=== PATIENT | male | born 1955 | race Caucasian/White ===

== ENCOUNTER 2019-06-04 07:01 | Inpatient (IN) ==
[2019-05-24 15:41] LABS: Basophils # 0.1 10*3/uL (0.0-0.2); Basophils % 0.6 % (0.0-0.8); Eosinophils # 0.2 10*3/uL (0.0-0.87); Eosinophils % 1.6 % (0.00-10.9); Hematocrit 46.6 VOL% (42.0-52.0); Hemoglobin 16.1 GM/DL (14.0-18.0); Immature Granulocytes % 0.5 %; Immature Granulocytes Absolute 0.07 #; Lymphocytes # 3.4 10*3/uL (1.4-4.0); Lymphocytes % 24.3 % (21.2-54.2); Mean Corpuscular HGB Conc 34.5 GM/DL (32-36); Mean Corpuscular Volume 91.4 FL (87-102); Mean Platelet Volume 10.7 FL (9.6-12.0); Monocytes % 7.9 % (1.7-12.7); Neutrophils % 65.1 % (38.7-73.9); Platelet Count 294 T/CUMM (130-400); White Blood Count 14.1 T/CUMM (4-12)
[2019-05-24 16:00] LABS: Albumin 4.1 G/DL (3.4-5.0); Bilirubin,Total 0.6 MG/DL (0.2-1.0); Calcium 9.7 MG/DL (8.5-10.1); Osmolality,Calculated 285.1 MOS/KG (273-304); Total Protein 7.8 G/DL (6.4-8.3)
[~2019-06-04 07:01] MED LIST: DIAZEPAM 5 MG TABLET PO ONE; FAMOTIDINE 20 MG TABLET PO ONE; LACTATED RINGERS 1,000 ML IV SCH; ceFAZolin 1,000 MG in SYRINGE 1 EACH IV ONE
[2019-06-04] MEDS ORDERED: DIAZEPAM 5 MG TABLET ONE (07:22)
[2019-06-04] MEDS ORDERED: FAMOTIDINE 20 MG TABLET ONE (07:22)
[2019-06-04] MEDS ORDERED: LIDOCAINE 1% 5 ML VIAL ONE (07:47)
[2019-06-04] MEDS ORDERED: HEPARIN/NACL 0.9% 2 UNITS/ML 500 ML IV ONE (07:47)
[2019-06-04] MEDS ORDERED: ROPIVACAINE 0.5% 30 ML VIAL ONE (07:47)
[2019-06-04] MEDS ORDERED: DEXAMETHASONE 4 MG/1 ML VIAL ONE ×2 (07:48→12:59)
[2019-06-04] MEDS ORDERED: ceFAZolin 1,000 MG VIAL ONE (07:59)
[2019-06-04] MEDS ORDERED: HEPARIN 5,000 UNIT/1 ML VIAL ONE (09:47)
[2019-06-04] MEDS ORDERED: TISSUE ADHESIVE 1 EACH APPLICATOR TOP ONE (09:47)
[2019-06-04] MEDS ORDERED: LIDOCAINE 1% 20 ML VIAL ONE (09:47)
[2019-06-04] MEDS ORDERED: LIDOCAINE 100 MG/5 ML SYRINGE ONE ×2 (10:11→12:58)
[2019-06-04] MEDS ORDERED: MIDAZOLAM 2 MG/2 ML VIAL ONE (10:11)
[2019-06-04] MEDS ORDERED: NITROGLYCERIN DRIP 50 MG/250 ML BOTTLE IV ONE (10:23)
[2019-06-04] MEDS ORDERED: PHENYLEPHRINE DRIP 20 MG/250 ML PREMIX IV ONE (10:23)
[2019-06-04] MEDS ORDERED: ALBUTEROL 2.5 MG/3 ML NEB RESP TX ONE (10:59)
[2019-06-04] MEDS ORDERED: oxyCODONE/ACETAMINOPHEN 5-325 MG TABLET PO PRN (12:22)
[2019-06-04] MEDS ORDERED: GLUCAGON 1 MG VIAL IM PRN (12:22)
[2019-06-04] MEDS ORDERED: ONDANSETRON 4 MG/2 ML VIAL IV PRN (12:22)
[2019-06-04] MEDS ORDERED: PROMETHAZINE 25 MG/1 ML VIAL IM PRN (12:22)
[2019-06-04] MEDS ORDERED: NALOXONE 0.4 MG/ML VIAL IV PRN (12:22)
[2019-06-04] MEDS ORDERED: HYDROmorphone 2 MG/1 ML VIAL IV PRN ×2 (12:22)
[2019-06-04] MEDS ORDERED: DEXTROSE 50% 25 GM/50 ML VIAL IV PRN (12:22)
[2019-06-04] MEDS ORDERED: NON-FORMULARY MEDICATION (Oxycodone-Acetaminophen 1 TABLET) PO PRN (12:24)
[2019-06-04] MEDS ORDERED: ACETAMINOPHEN 325 MG TABLET PO PRN (12:24)
[2019-06-04] MEDS ORDERED: PHENYLEPHRINE DRIP 40 MG/250 ML PREMIX IV SCH (12:30)
[2019-06-04] MEDS ORDERED: NITROPRUSSIDE 100 MG in DEXTROSE 5% 250 ML IV SCH (12:30)
[2019-06-04] MEDS ORDERED: PROPOFOL 200 MG/20 ML VIAL IV ONE (12:58)
[2019-06-04] MEDS ORDERED: SEVOFLURANE 1 UNIT/15 MINUTE INH ONE (12:58)
[2019-06-04] MEDS ORDERED: HEPARIN 10,000 UNIT/10 ML VIAL ONE (12:58)
[2019-06-04] MEDS ORDERED: GLYCOPYRROLATE 0.4 MG/2 ML VIAL ONE (12:59)
[2019-06-04] MEDS ORDERED: ACETAMINOPHEN 1,000 MG/100 ML VIAL IV ONE (12:59)
[2019-06-04] MEDS ORDERED: LACTATED RINGERS 1,000 ML IV ONE (12:59)
[2019-06-04] MEDS ORDERED: fentaNYL 100 MCG/2 ML VIAL ONE (12:59)
[2019-06-04] MEDS ORDERED: PROTAMINE SULFATE 50 MG/5 ML VIAL IV ONE (12:59)
[2019-06-04] MEDS ORDERED: ONDANSETRON 4 MG/2 ML VIAL ONE (12:59)
[2019-06-04] MEDS ORDERED: NEOSTIGMINE 10 MG/10 ML VIAL ONE (12:59)
[2019-06-04] MEDS ORDERED: ROCURONIUM 100 MG/10 ML VIAL IV ONE (12:59)
[2019-06-04] MEDS ORDERED: ePHEDrine 50 MG/ML AMP ONE (13:05)
[2019-06-04] MEDS: LACTATED RINGERS 1,000 ML IV SCH ×2 (13:45→23:15)
[2019-06-04] MEDS: oxyCODONE/ACETAMINOPHEN 5-325 MG TABLET PO PRN (18:26)
[2019-06-04] MEDS: CELECOXIB 200 MG CAPSULE PO SCH (20:50)
[2019-06-04] MEDS ORDERED: SIMVASTATIN 40 MG TABLET PO SCH (21:00)
[2019-06-05] MEDS: oxyCODONE/ACETAMINOPHEN 5-325 MG TABLET PO PRN ×2 (03:31→11:28)
[2019-06-05] MEDS: CELECOXIB 200 MG CAPSULE PO SCH (08:21)
[2019-06-05] MEDS ORDERED: MONTELUKAST 10 MG TABLET PO SCH (09:00)
[2019-06-05] MEDS ORDERED: ENALAPRIL 5 MG TABLET PO SCH (09:00)
[2019-06-05] MEDS ORDERED: ASPIRIN EC 81 MG TABLET PO SCH (09:00)
[2019-06-05] MEDS ORDERED: LACTOBACILLUS RHAMNOSUS GG CAPSULE PO SCH (09:00)
[2019-06-05] MEDS ORDERED: FENOFIBRATE 160 MG TABLET PO SCH (09:00)
[2019-06-05] MEDS ORDERED: TAMSULOSIN 0.4 MG CAPSULE PO SCH (09:00)
[2019-06-05] MEDS: LACTATED RINGERS 1,000 ML IV SCH (10:10)
[2019-06-05] MEDS ORDERED: METOPROLOL SUCCINATE XL 50 MG TABLET PO SCH (10:34)
[2019-06-05] MEDS ORDERED: CETIRIZINE 10 MG TABLET PO SCH (10:34)
[2019-06-05] MEDS ORDERED: SODIUM CHLORIDE 0.65% NASAL SPRAY 45 ML BOTTLE BOTH NARES SCH (10:34)
[2019-06-05 11:38] VITALS: BP 119/56
[2019-06-05] MEDS ORDERED: SIMETHICONE CHEW 125 MG TABLET PO SCH (21:00)
== END 2019-06-05 13:20 | disposition home or self-care (01) | DRG 39 ==
LOC: N.SDSINP 07:01 → N.ICU 10:44 → N.3E 06-05 10:18
PROVIDERS: ADMIT Surgery; ATTEND Surgery

== ENCOUNTER 2021-10-15 06:42 | Inpatient (IN) ==
[2021-10-13 11:52] LABS: Basophils # 0.1 10*3/uL (0.0-0.2); Basophils % 0.7 % (0.0-0.8); Eosinophils # 0.2 10*3/uL (0.0-0.87); Eosinophils % 2.2 % (0.00-10.9); Hematocrit 48.1 VOL% (42.0-52.0); Immature Granulocytes % 0.4 %; Immature Granulocytes Absolute 0.04 #; Lymphocytes # 2.6 10*3/uL (1.4-4.0); Lymphocytes % 25.4 % (21.2-54.2); Mean Corpuscular HGB Conc 33.3 GM/DL (32-36); Mean Corpuscular Volume 91.8 FL (87-102); Mean Platelet Volume 11.2 FL (9.6-12.0); Monocytes % 10.2 % (1.7-12.7); Neutrophils % 61.1 % (38.7-73.9); Platelet Count 290 T/CUMM (130-400); Red Blood Count 5.24 MC/CUMM (3.8-5.5); Red Cell Distribution Width 13.7 % (9.3-17.3); White Blood Count 10.1 T/CUMM (4-12)
[2021-10-13 12:03] LABS: PT Patient Result 11.4 SECS (10.5-12.0)
[2021-10-13 12:06] LABS: Alanine Aminotransferase 26 U/L (16-61); Albumin 3.9 G/DL (3.4-5.0); Alkaline Phosphatase 69 U/L (45-117); Aspartate Amino Transferase 16 U/L (0-37); Bilirubin,Total < 0.39 MG/DL (0.20-1.00); Blood Urea Nitrogen 16 MG/DL (7-18); Calcium 9.6 MG/DL (8.5-10.1); Carbon Dioxide 26 MMOL/L (21-32); Estimated Glom Filtration Rate 84 ML/MIN; Glucose 127 MG/DL (74-106); Osmolality,Calculated 279.5 MOS/KG (273-304); Potassium 4.1 MMOL/L (3.5-5.1); Sodium 139 MMOL/L (136-145); Total Protein 7.3 G/DL (6.4-8.2)
[2021-10-15] MEDS ORDERED: ALBUTEROL 2.5 MG/3 ML NEB RESP TX ONE (06:51)
[2021-10-15] MEDS ORDERED: DIAZEPAM 5 MG TABLET PO ONE (06:51)
[2021-10-15] MEDS ORDERED: FAMOTIDINE 20 MG TABLET PO ONE (06:51)
[2021-10-15] MEDS ORDERED: LACTATED RINGERS 1,000 ML IV SCH (07:00)
[2021-10-15] MEDS ORDERED: fentaNYL 100 MCG/2 ML VIAL ONE (08:42)
[2021-10-15] MEDS ORDERED: MIDAZOLAM 2 MG/2 ML VIAL ONE (08:43)
[2021-10-15] MEDS ORDERED: LIDOCAINE 2% 5 ML VIAL ONE (08:44)
[2021-10-15] MEDS ORDERED: HEPARIN/NACL 0.9% 2 UNITS/ML 1,000 UNIT/500 ML BAG IV ONE (08:44)
[2021-10-15] MEDS ORDERED: ROCURONIUM 50 MG/5 ML VIAL IV ONE (08:44)
[2021-10-15] MEDS ORDERED: SUCCINYLCHOLINE 200 MG/10 ML VIAL ONE (08:44)
[2021-10-15] MEDS ORDERED: NITROGLYCERIN DRIP 50 MG/250 ML BOTTLE IV ONE (08:44)
[2021-10-15] MEDS ORDERED: propofoL 200 MG/20 ML VIAL IV ONE (08:44)
[2021-10-15] MEDS ORDERED: PHENYLEPHRINE 10 MG/1 ML VIAL IV ONE (08:49)
[2021-10-15] MEDS ORDERED: DEXAMETHASONE 4 MG/1 ML VIAL ONE (08:50)
[2021-10-15] MEDS ORDERED: BUPIVACAINE MPF 0.25% 30 ML VIAL ONE (08:50)
[2021-10-15] MEDS ORDERED: LIDOCAINE 1% 5 ML VIAL ONE (08:50)
[2021-10-15] MEDS ORDERED: HEPARIN 5,000 UNIT/1 ML VIAL ONE (09:00)
[2021-10-15] MEDS ORDERED: TISSUE ADHESIVE 1 EACH APPLICATOR TOP ONE (09:00)
[2021-10-15] MEDS ORDERED: LIDOCAINE 1% 50 ML VIAL ONE (09:03)
[2021-10-15] MEDS ORDERED: VANCOMYCIN INJ 1,000 MG in SODIUM CHLORIDE 0.9% 250 ML IV ONE (09:19)
[2021-10-15] MEDS ORDERED: VANCOMYCIN 1,000 MG VIAL ONE (09:55)
[2021-10-15] MEDS ORDERED: SEVOFLURANE 1 UNIT/15 MINUTE INH ONE ×6 (10:46→11:38)
[2021-10-15] MEDS ORDERED: PROTAMINE SULFATE 50 MG/5 ML VIAL IV ONE (10:51)
[2021-10-15] MEDS ORDERED: HEPARIN 10,000 UNIT/10 ML VIAL ONE (10:51)
[2021-10-15] MEDS ORDERED: NEOSTIGMINE 10 MG/10 ML VIAL ONE (10:52)
[2021-10-15] MEDS ORDERED: GLYCOPYRROLATE 0.4 MG/2 ML VIAL ONE ×2 (10:52)
[2021-10-15] MEDS ORDERED: NALOXONE 0.4 MG/ML VIAL IV PRN (11:04)
[2021-10-15] MEDS ORDERED: HYDROmorphone 2 MG/1 ML VIAL IV PRN (11:04)
[2021-10-15] MEDS ORDERED: PROMETHAZINE 25 MG/1 ML VIAL IM PRN (11:04)
[2021-10-15] MEDS ORDERED: oxyCODONE/ACETAMINOPHEN 5-325 MG TABLET PO PRN ×2 (11:04)
[2021-10-15] MEDS ORDERED: DICLOFENAC 1% GEL 100 GM TUBE TOP PRN (11:06)
[2021-10-15] MEDS ORDERED: NITROPRUSSIDE 100 MG in DEXTROSE 5% 250 ML IV SCH (11:30)
[2021-10-15] MEDS ORDERED: PHENYLEPHRINE DRIP 40 MG/250 ML PREMIX IV SCH (11:30)
[2021-10-15] MEDS: LACTATED RINGERS 1,000 ML IV SCH ×2 (12:21→22:27)
[2021-10-15 13:27] VITALS: BP 121/35
[2021-10-15] MEDS: BACLOFEN 10 MG TABLET PO SCH ×2 (17:53→20:37)
[2021-10-15] MEDS: ONDANSETRON 4 MG/2 ML VIAL IV PRN (20:15)
[2021-10-15] MEDS: HYDROmorphone 2 MG/1 ML VIAL IV PRN (20:17)
[2021-10-15] MEDS ORDERED: SIMETHICONE CHEW 125 MG TABLET PO SCH (21:00)
[2021-10-15] MEDS ORDERED: SIMVASTATIN 40 MG TABLET PO SCH (21:00)
[2021-10-15] MEDS: BACILLUS COAGULANS CAPLET PO SCH (21:08)
[2021-10-16] MEDS: HYDROmorphone 2 MG/1 ML VIAL IV PRN (01:32)
[2021-10-16] MEDS: ONDANSETRON 4 MG/2 ML VIAL IV PRN (01:38)
[2021-10-16] MEDS: LACTATED RINGERS 1,000 ML IV SCH (07:50)
[2021-10-16] MEDS: BACILLUS COAGULANS CAPLET PO SCH (08:56)
[2021-10-16] MEDS: BACLOFEN 10 MG TABLET PO SCH (08:56)
[2021-10-16] MEDS ORDERED: TRIAMTERENE/HCTZ 37.5-25 MG TABLET PO SCH (09:00)
[2021-10-16] MEDS ORDERED: ASPIRIN EC 81 MG TABLET PO SCH ×2 (09:00)
[2021-10-16] MEDS ORDERED: FENOFIBRATE 160 MG TABLET PO SCH (09:00)
[2021-10-16] MEDS ORDERED: PANTOPRAZOLE 40 MG TABLET PO SCH (09:00)
[2021-10-16] MEDS ORDERED: METOPROLOL SUCCINATE XL 50 MG TABLET PO SCH (09:00)
[2021-10-16] MEDS ORDERED: ENALAPRIL 5 MG TABLET PO SCH (09:00)
[2021-10-16] MEDS ORDERED: EZETIMIBE 10 MG TABLET PO SCH (09:00)
[2021-10-16] MEDS ORDERED: TAMSULOSIN 0.4 MG CAPSULE PO SCH (09:00)
[2021-10-16] MEDS ORDERED: CALCIUM CARBONATE CHEW 500 MG TABLET PO SCH (09:00)
[2021-10-16] MEDS ORDERED: ACETAMINOPHEN 325 MG TABLET PO PRN (10:06)
== END 2021-10-16 13:14 | disposition home or self-care (01) | DRG 38 ==
LOC: N.OR 06:42 → N.SDSINP 06:45 → EDSTATUS 09:00 → N.SDSINP 11:04 → N.ICU 13:06
PROVIDERS: ADMIT Surgery; ATTEND Surgery